=== PATIENT | female | born 1965 | race Caucasian/White ===

== ENCOUNTER 2017-12-02 12:57 | Inpatient (IN) | payer OTHER ==
[2017-12-02] MEDS ORDERED: SODIUM CHLORIDE 0.9% 1,000 ML IV ONE (13:09)
[2017-12-02] MEDS ORDERED: ONDANSETRON 4 MG/2 ML VIAL IVP STA (13:09)
[2017-12-02] MEDS ORDERED: ACETAMINOPHEN 325 MG TABLET PO STA (13:10)
--- NOTE | 2017-12-02 13:12 | ED Physician Documentation ---
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 Note made that she was hospitalized for urosepsis in 2013, pansensitive E. coli. She has had a fever for 5 days with body aches and fatigue. She was seen in the office today. Per her recollection she had a positive urinalysis and was administered IM shot of antibiotics, I presume Rocephin. She was sent home with prescription for Zofran and Cipro but told to come here if she started vomiting which she just did. She has body aches but no urinary symptoms, no URI symptoms. No abdominal pain.) Review of Systems Constitutional: reports: Fever, Chills, Myalgias, Fatigue Ears: denies: Ear pain, Drainage/discharge Nose: denies: Rhinorrhea / runny nose, Congestion Throat: denies: Sore throat Cardiac: denies: Chest pain / pressure, Palpitations Respiratory: denies: Dyspnea, Cough GI: reports: Nausea, Vomiting. denies: Abdominal Pain, Diarrhea PD PAST MEDICAL HISTORY - Past Medical History Past Medical History: Yes GI: Diverticulitis Musculoskeletal: Chronic back pain Other Past Medical History: Chronic dystonia of the neck - Past Surgical History Past Surgical History: Yes - Present Medications Home Medications: Ambulatory Orders Medication Instructions Recorded Confirmed Cyclobenzaprine [Flexeril] 10 mg PO DAILY 05/10/14 12/28/14 Hydrocodone/Acetaminophen 1 each PO Q4HR 05/10/14 12/28/14 [Hydrocodone-APAP 5-300] clonazePAM [Klonopin] 1 mg PO DAILY 05/10/14 12/28/14 - Allergies Allergies/Adverse Reactions: Allergies Allergy/AdvReac Type Severity Reaction Status Date / Time No Known Drug Allergies Allergy Verified 12/02/17 13:05 - Social History Does the pt smoke?: Yes Smoking Status: Current every day smoker Does the pt drink ETOH?: No Does the pt have substance abuse?: No - Family History Family history: reports: Non contributory - Immunizations Immunizations are current?: Yes - POLST Patient has POLST: No PD ED PE NORMAL - Vitals Vital signs reviewed: Yes (Febrile and tachycardic, not hypotensive) - General General: Alert and oriented X 3, No acute distress - HEENT HEENT: PERRL, EOMI - Neck Neck: Supple, no meningeal sign, No bony TTP - Cardiac Cardiac: RRR, No murmur - Respiratory Respiratory: No respiratory distress, Clear bilaterally - Abdomen Abdomen: Normal bowel sounds, Soft, Non tender - Back Back: No CVA TTP, No spinal TTP - Derm Derm: Normal color, Warm and dry - Extremities Extremities: No edema, No calf tenderness / cord - Neuro Neuro: Alert and oriented X 3, Normal speech - Psych Psych: Normal mood, Normal affect Results - Vitals Vitals: Vital Signs - 24 hr 12/02/17 12/02/17 12/02/17 13:02 14:04 14:06 Temperature 39.2 C H 37.9 C H Heart Rate 102 H 82 Respiratory 15 15 Rate Blood Pressure 114/75 95/62 O2 Saturation 96 100 Oxygen O2 Source Room air - Labs Labs: Laboratory Tests 12/02/17 12/02/17 12/02/17 13:20 13:20 13:20 WBC 11.7 H RBC 3.70 L Hgb 11.4 L Hct 33.0 L MCV 89.3 MCH 30.9 MCHC 34.7 RDW 12.5 Plt Count 229 MPV 7.5 L Neut # 9.4 H Lymph # 0.7 L Deuel # 1.5 H Eos # 0.0 Baso # 0.0 Absolute Nucleated RBC 0.00 Nucleated RBC % 0.0 Sodium 124 L Potassium 3.8 Chloride 91 L Carbon Dioxide 23 Anion Gap 10.0 BUN 8 Creatinine 0.9 Estimated GFR (MDRD) 65 L Glucose 119 H Lactic Acid 0.9 Calcium 8.6 Total Bilirubin 0.3 AST 22 ALT 18 Alkaline Phosphatase 88 Total Protein 7.5 Albumin 3.7 Globulin 3.8 Albumin/Globulin Ratio 1.0 Lipase 16 L Urine Color Urine Clarity Urine pH Ur Specific [place] Urine Protein Urine Glucose (UA) Urine Ketones Urine Occult Blood Urine Nitrite Urine Bilirubin Urine Urobilinogen Ur Leukocyte Esterase Urine RBC Urine WBC Ur Squamous Epith Cells Urine Bacteria Ur Microscopic Review Urine Culture Comments 12/02/17 13:52 WBC RBC Hgb Hct MCV MCH MCHC RDW Plt Count MPV Neut # Lymph # Deuel # Eos # Baso # Absolute Nucleated RBC Nucleated RBC % Sodium Potassium Chloride Carbon Dioxide Anion Gap BUN Creatinine Estimated GFR (MDRD) Glucose Lactic Acid Calcium Total Bilirubin AST ALT Alkaline Phosphatase Total Protein Albumin Globulin Albumin/Globulin Ratio Lipase Urine Color LT. YELLOW Urine Clarity CLOUDY Urine pH 6.5 Ur Specific [place] <=1.005 Urine Protein NEGATIVE Urine Glucose (UA) NEGATIVE Urine Ketones NEGATIVE Urine Occult Blood MODERATE H Urine Nitrite POSITIVE H Urine Bilirubin NEGATIVE Urine Urobilinogen 0.2 (NORMAL) Ur Leukocyte Esterase SMALL H Urine RBC 0-5 Urine WBC 6-10 H Ur Squamous Epith Cells RARE Squamous Urine Bacteria None Seen Ur Microscopic Review INDICATED Urine Culture Comments INDICATED PD MEDICAL DECISION MAKING - ED course ED [place] [facility] [place]inalysis today that was positive, 2+ leukocyte esterase, positive nitrates, 3+ blood. She was given ceftriaxone, 1 g IM. In the clinic her temperature was 100.4 Fahrenheit and her pulse was 104 initially but after treatment it was 80. Urinalysis was sent for culture. Here she was quite febrile to 39 2, persistently vomiting and nauseous despite antiemetics. Given her history of urosepsis with similar symptoms and her persistent symptoms it seems to be reasonable to put her in the hospital. She was cultured up and given Zosyn, Tylenol here. Spoke with Dr. Rain for admission at 2:14 PM. Departure - Departure Disposition: [facility] DC/[place] Clinical Impression: Pyelonephritis Urinary tract infection Qualifiers: Urinary tract infection type: acute pyelonephritis Qualified Code(s): N10 - Acute pyelonephritis Condition: Serious
[2017-12-02 13:30] LABS: BASOPHILS % (AUTO) 0.2 %; HGB - HEMOGLOBIN 11.4 g/dL (12.0-16.0); LYMPHOCYTES # (AUTO) 0.7 10^3/uL (1.5-3.5); LYMPHOCYTES % (AUTO) 6.1 %; MEAN CORPUSCULAR HEMOGLOBIN 30.9 pg (27.0-31.0); MEAN CORPUSCULAR HGB CONC 34.7 g/dL (32.0-36.0); MEAN CORPUSCULAR VOLUME 89.3 fL (81.0-99.0); MEAN PLATELET VOLUME 7.5 fL (7.9-10.8); MONOCYTES # (AUTO) 1.5 10^3/uL (0.0-1.0); NEUTROPHILS # (AUTO) 9.4 10^3/uL (1.5-6.6); NEUTROPHILS % (AUTO) 80.7 %; PLT - PLATELET COUNT 229 10^3/uL (130-450); RED CELL DISTRIBUTION WIDTH 12.5 % (12.0-15.0); WHITE BLOOD COUNT 11.7 x10^3/uL (4.8-10.8)
[2017-12-02 13:41] LABS: ALBUMIN 3.7 g/dL (3.2-5.5); BILIRUBIN,TOTAL 0.3 mg/dL (0.2-1.0); CALCIUM 8.6 mg/dL (8.5-10.3); CREATININE 0.9 mg/dL (0.4-1.0); TOTAL PROTEIN 7.5 g/dL (6.7-8.2)
[2017-12-02 14:05] LABS: BILIRUBIN,URINE NEGATIVE (NEGATIVE); GLUCOSE, URINE (UA) NEGATIVE (NEGATIVE); KETONES,URINE (UA) NEGATIVE (NEGATIVE); LEUKOCYTE ESTERASE, URINE SMALL (NEGATIVE); NITRITE,URINE POSITIVE (NEGATIVE); OCCULT BLOOD,URINE MODERATE (NEGATIVE); PH,URINE 6.5 PH (5.0-7.5); PROTEIN,URINE NEGATIVE (NEGATIVE); UROBILINOGEN,URINE 0.2 (NORMAL) E.U./dL (NORMAL)
[2017-12-02 14:12] LABS: CLARITY,URINE CLOUDY (CLEAR); RBC,URINE 0-5 /HPF (0-5); SQUAMOUS EPITHELIAL CELL,UR RARE Squamous (<= Few)
[2017-12-02] MEDS ORDERED: HYDROmorphone 1 MG/ML CARPUJECT IVP STA (14:12)
[2017-12-02] MEDS ORDERED: PIPERACILLIN/TAZOBACTAM 3.375 GM in SODIUM CHLORIDE 0.9% MINIBAG 100 ML IV STA (14:12)
[2017-12-02 14:13] LABS: BACTERIA,URINE None Seen /HPF (None Seen)
[2017-12-02] MEDS ORDERED: SODIUM CHLORIDE FLUSH 0.9% 10 ML SYRINGE IVP PRN ×2 (14:20→14:56)
[2017-12-02] MEDS ORDERED: SODIUM CHLORIDE 0.9% 1,000 ML IV SCH (15:00)
[2017-12-02] MEDS: SODIUM CHLORIDE 0.9% 1,000 ML IV SCH (15:05)
--- NOTE | 2017-12-02 16:04 | HISTORY & PHYSICAL EXAMINATION ---
Chief Complaint - Chief Complaint Chief Complaint: nausea, fever. History of Present Illness - Admitted From Admitted From:: ED - History Obtained From Records Reviewed: yes History obtained from: chart review, patient. Exam Limitations: emotional state - History of Present Illness HPI Comment/Other: Brenda Lawler is an ill appearing 52-year old white female with a past medical history of diverticulitis, stomach ulcers, urosepsis requiring hospitalization in 2014, chronic back pain, dystonia of neck for the past ~30 years and receives Botox injections every 11 weeks, insomnia, and tobacco/narcotic dependence. The patient presented to the ED with a primary complaint of fevers at home of 104 taken orally, chills, body and joint aches, and this morning began to have nausea with vomiting. She recalls having dark, cloudy, and malodorous urine that began about 3 weeks ago, but denies dysuria, hematuria or incontinence. Once in the ED she was found to be febrile with a temp max of 39.2, mildly hypotensive with a B/P of 95/62. Lab results show an elevated WBC count of 11.7, low sodium of 124, and urine suspicious for UTI. Given her severity of symptoms, lab findings, and her history, we will admit her to inpatient for further treatment of urosepsis by giving IV antibiotics, IVFs for treatment of hyponatremia, and treat her symptoms. Her Parish was present both in the ED and at the bedside for much of her admission. History - Past Medical History Cardiovascular: reports: None Respiratory: reports: COPD (suspected d/t prolonged tobacco abuse.) Neuro: reports: Other (insomnia, neck dystonia) Endocrine/Autoimmune: reports: None GI: reports: Ulcers, Chronic constipation, Diverticulitis RN CASE MANAGER: reports: Endometriosis (A history only-no longer as this organ was removed. ), Other (C-sections x2, hysterectomy.) : reports: Other (previous urosepsis in 2014- e. coli.) HEENT: reports: None Psych: reports: Anxiety, Other (insomnia) Musculoskeletal: reports: Chronic back pain, Other (chronic neck dystonia ~30 years, denies surgery) Derm: reports: None MRSA Hx?: No Other Past Medical History: Chronic dystonia of the neck - Past Surgical History General: reports: Colonoscopy Ortho: reports: Other /RN CASE MANAGER: reports: section, Hysterectomy HEENT: reports: Tonsil/Adenoidectomy Other past surgical history: Hysterectomy, x2, foot surgery, tonsillectomy. - Family & Social History Family History: Mother: Alive and Well, Father: , Cancer, Sister: Alive and Well, Brother: Alive and Well Family History Comment/Other: Father from thyroid cancer, mother, brother and sister all alive and well without known chronic diseases. Living arrangement: At home Living Situation: With spouse/s.o. 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 [place] is to Parish of 7 years of whom she lives with. They live [place] of town and have pheasants, 13 chickens, and a cat. The patient has 2 alive and well children a boy and a girl. She denies alcohol, or illicit drug use. She admits to tobacco dependence for much of her adult life. She wishes to be a FULL code. - Substance History Use: Uses substance without health or social issues: Tobacco Abuse: Recurrent use of substance despite neg consequences: NONE Dependence: Experiences withdrawal or developed tolerances: Tobacco Dependence Issues: Sleep Disorder Tobacco Details: Cigarettes (life long smoker, no interest in cessation. Denies dependence during both pregnancies, and states that she has attempted cessation several times in her life, but life stressors cause her to go back to using.) - POLST Patient has POLST: No POLST Status: Full Code Meds/Allgy - Home Medications Home Medications: Ambulatory Orders Medication Instructions Recorded Confirmed Cyclobenzaprine [Flexeril] 10 mg PO QPM 05/10/14 12/02/17 clonazePAM [Klonopin] 1 mg PO QPM 05/10/14 12/02/17 Hydrocodone/Acetaminophen 1 tab PO Q4H PRN 12/02/17 12/02/17 [Hydrocodone-Acetamin 10-325 mg] - Allergies Allergies/Adverse Reactions: Allergies Allergy/AdvReac Type Severity Reaction Status Date / Time No Known Drug Allergies Allergy Verified 12/02/17 13:05 Review of Systems - Constitutional Constitutional: reports: Fatigue, Fever, Chills, Weakness, Poor appetite - Eyes Eyes: denies: Amaurosis, Blurred vision, Vision loss - Ears, Nose & Throat Ears, Nose & Throat: denies: Ear pain, Hearing loss, Hearing aids, Tinnitus - Cardiovascular Cariovascular: reports: Decr. exercise tolerance. denies: Irregular heart rate , Palpitations, Chest pain, Edema - Respiratory Respiratory: denies: Cough, Sputum production - Gastrointestinal Gastrointestinal: reports: Abdominal pain, Change in bowel habits, Nausea, Vomiting, Bile emesis, Poor appetite - Genitourinary Genitourinary: reports: Dysuria, Frequency - Musculoskeletal Musculoskeletal: reports: Joint pain, Joint swelling - Integumentary Integumentary: reports: Dryness. denies: Rash, Pruritis, Lesions - Neurological Neurological: reports: General weakness. denies: Headache, Dizziness - Psychiatric Psychiatric: denies: Depression, Anxiety, Suicidal - Endocrine Endocrine: denies: Polyuria, Polydypsia - Hematologic/Lymphatic Hematologic/Lymphatic: denies: Anemia, Bruising, Petechiae - All Other Systems All Other Systems: reports: Reviewed and negative Exam - Vital Signs Reviewed Vital Signs: Yes Vital Signs: Vital Signs x48h Temp Pulse Pulse Resp BP BP Pulse Ox 12/02/17 15:29 37.2 C 87 18 130/66 98 12/02/17 14:57 37.3 C 80 18 92/56 L 97 12/02/17 14:42 84 17 95/63 97 - Physical Exam General Appearance: positive: Alert, Moderate distress, Anxious Eyes Bilateral: positive: Normal inspection, PERRL ENT: positive: ENT inspection nml, Pharynx nml Neck: positive: Nml inspection, Thyroid nml, No JVD, Trachea midline Respiratory: positive: Chest non-tender, No respiratory distress Cardiovascular: positive: Regular rate & rhythm Peripheral Pulses: positive: 2+ Abdomen: positive: No organomegaly, Tenderness, Guarding, Abnml bowel sounds Back: positive: CVA tenderness (R) (right greater than left.), CVA tenderness (L ) Skin: positive: Color nml, No rash, Warm, Dry Extremities: positive: Non-tender, Full ROM, Nml appearance, No pedal edema Neurologic/Psychiatric: positive: Oriented x3, CN's nml (2-12), Motor nml, Sensation nml, Depressed mood/affect Reflexes: Bicep (R): 3+, Bicep (L): 3+ Conclusion/Plan - Problem List (1) Intractable nausea and vomiting Conclusion/Plan: With the initiation of nausea with uncontrolled vomiting, the patient decided to come to the ED. Her last known emesis was this AM. This was likely a result of dehydration. Plan: Continue to replenish fluids with IVFs and treat symptoms. Qualifiers: Vomiting type: unspecified Qualified Code(s): R11.2 - Nausea with vomiting , unspecified (2) Pyelonephritis Conclusion/Plan: Patient has had similar presentation back in the year 2013, was hospitalized, and was found to have e. coli justice-sensitivities. She denies dysuria, hematuria , but admits to dark, cloudy and malodorous urine that started about 3 weeks ago. One possible risk factor is related to anatomy as she is post- hysterectomy. Patient was noticably emotionally disturbed upon arriving to the nursing floor, so telemetry was discontinued after a short review. This was ordered in light of the patient's febrile state and severity of illness with the potential of her condition worsening. Plan: Treat current illness with IV antibiotics and suggest urology follow up. (3) Fever Conclusion/Plan: Per patient report with her to verify, she had a temp max of 104 orally at home that started about 5 days ago. She has been afebrile since on the nursing floor. I anticipate patient to possibly become febrile later this evening due to acute illness. Plan: Continue to monitor vital signs and patient's clinical status. (4) Tobacco dependence Conclusion/Plan: Patient admits to starting smoking when she was in her 20's. She did not smoke during either , has attempted to quit multiple times, but has never been able to maintain cessation. Patient states that her most recent use has been a half to 1/4 PPD and this depends on her stress level at the time. Plan: Add nicotine patch only PRN as patient denies the need for this and monitor for nicotine withdrawal. (5) Cervical dystonia Conclusion/Plan: The patient has a long history of this condition and has suffered with it for the past ~30 years. She currently receives Botox injections to treat this every 11 weeks, which occurred about 5 weeks ago. Plan: Treat with usual home medications including flexeril, hydrocodone, and clonazepam. Hydromorphone IV PRN has been added for addition agents due to the severity of illness at this time. We will monitor for over sedation. (6) Hyponatremia Conclusion/Plan: At the time of admission, the patient is noted to have a low sodium of only 124. She denies confusion and has no other signs. Plan: Treat with normal saline continuous fluids and re-check labs in AM. - Lab Results Lab results reviewed: Yes Juan Bones: 12/02/17 13:20 12/02/17 13:20 - EKG Results EKG Interpreted Independently: Yes Core Measures - Anticipated LOS I expect patient to be DC'd or transferred within 96 hours.: Yes - DVT/VTE - Prophylaxis VTE/DVT Device ordered at admit?: Yes VTE/DVT Prophylaxis med ordered at admit?: Yes - Stroke - Rehab Assessment Rehab services assessment to be ordered?: No Not Ordered - Medical Reason: Contraindicated - AMI - Statin at Admit Aspirin Prescribed on Admit: Yes
[2017-12-02] MEDS: HYDROmorphone 1 MG/ML CARPUJECT IVP PRN ×2 (16:06→19:16)
[2017-12-02] MEDS: SODIUM CHLORIDE FLUSH 0.9% 10 ML SYRINGE IVP SCH (16:07)
[2017-12-02] MEDS ORDERED: SODIUM CHLORIDE FLUSH 0.9% 10 ML SYRINGE IVP SCH (17:00)
[2017-12-02] MEDS ORDERED: ONDANSETRON 4 MG/2 ML VIAL IVP PRN (17:17)
[2017-12-02] MEDS: ACETAMINOPHEN 325 MG TABLET PO PRN (20:28)
[2017-12-02] MEDS: clonazePAM 0.5 MG TABLET PO SCH (20:29)
[2017-12-02] MEDS: CYCLOBENZAPRINE 10 MG TABLET PO SCH (20:30)
[2017-12-02] MEDS: PIPERACILLIN/TAZOBACTAM 3.375 GM in SODIUM CHLORIDE 0.9% MINIBAG 100 ML IV SCH (20:50)
[2017-12-02] MEDS: cefTRIAXone 1 GM VIAL IVP SCH (22:19)
[2017-12-03] MEDS: HYDROmorphone 1 MG/ML CARPUJECT IVP PRN ×3 (00:37→15:02)
[2017-12-03] MEDS: SODIUM CHLORIDE 0.9% 1,000 ML IV SCH (01:33)
[2017-12-03] MEDS: PIPERACILLIN/TAZOBACTAM 3.375 GM in SODIUM CHLORIDE 0.9% MINIBAG 100 ML IV SCH ×4 (01:34→19:34)
[2017-12-03] MEDS: SODIUM CHLORIDE FLUSH 0.9% 10 ML SYRINGE IVP SCH ×3 (05:56→20:38)
[2017-12-03] MEDS: POLYETHYLENE GLYCOL 3350 17 GM PACKET PO SCH (07:44)
[2017-12-03] MEDS: ACETAMINOPHEN 325 MG TABLET PO PRN (07:44)
--- NOTE | 2017-12-03 08:24 | PROVIDER PROGRESS NOTE ---
Assessment/Plan - Problem List (1) Intractable nausea and vomiting Qualifiers: Vomiting type: unspecified Qualified Code(s): R11.2 - Nausea with vomiting , unspecified Assessment/Plan: With the initiation of nausea with uncontrolled vomiting, the patient decided to come to the ED. Her last known emesis was when she was still in the ED. This was likely a result of dehydration, in addition to her uncontrolled symptoms, and acute illness. The patient is still suffering with very mild, intermittent nausea. Plan: Continue to replenish fluids with IVFs and treat symptoms. (2) Pyelonephritis Assessment/Plan: The patient has had a similar presentation back in the year 2013, was hospitalized, and was found to have e. coli justice-sensitivities. She denies dysuria, hematuria, but admits to dark, cloudy and malodorous urine that started about 3 weeks ago. One possible risk factor is related to anatomy as she is post-hysterectomy. A urine sample was obtained in the ED which indicates a UTI, urine cultures are still pending. Patient was found to be hypotensive, with a low blood pressure charted as 88/47. IV fluid boluses corrected this. Plan: Treat current illness with IV antibiotics and suggest urology follow up. (3) Fever Assessment/Plan: Per patient report with her to verify, she had a temp max of 104 orally at home that started about 5 days ago. Once on the nursing floor, the patient had a temp max of 39.5 (103.1) overnight, and this morning is slightly improved. Plan: Continue to monitor vital signs and patient's clinical status. (4) Tobacco dependence Assessment/Plan: Patient admits to starting smoking when she was in her 20's. She did not smoke during either , has attempted to quit multiple times, but has never been able to maintain cessation. Patient states that her most recent use has been a half to 1/4 PPD and this depends on her stress level at the time. Plan: Add nicotine patch only PRN as patient denies the need for this and monitor for nicotine withdrawal. (5) Cervical dystonia Assessment/Plan: The patient has a long history of this condition and has suffered with it for the past ~30 years. She currently receives Botox injections to treat this every 11 weeks, which occurred about 5 weeks ago. Plan: Treat with usual home medications including flexeril, hydrocodone, and clonazepam. Hydromorphone IV PRN has been added for addition agents due to the severity of illness at this time. We will monitor for over sedation. (6) Hyponatremia Assessment/Plan: At the time of admission, the patient is noted to have a low sodium of only 124 that is improved to 129. She denies confusion and has no other signs. Plan: Treat with normal saline continuous fluids and re-check labs daily. - Current Meds Current Meds: Current Medications Generic Name Dose Route Start Last Admin Trade Name Freq PRN Reason Stop Dose Admin Acetaminophen 650 mg 12/02/17 19:32 12/03/17 07:44 Tylenol PO 650 mg Q4HR PRN Administration Pain or Fever > 38C (100.4F) Ceftriaxone Sodium 1 gm 12/02/17 19:35 12/02/17 22:19 Rocephin IVP 1 gm Q24H ANTONI Administration Clonazepam 1 mg 12/02/17 21:00 12/02/17 20:29 Klonopin PO 1 mg QPM ANTONI Administration Cyclobenzaprine HCl 10 mg 12/02/17 21:00 12/02/17 20:30 Flexeril PO 10 mg QPM ANTONI Administration Hydromorphone HCl 1 mg 12/02/17 15:46 12/03/17 05:16 Dilaudid Inj Carp IVP 1 mg Q2HR PRN Administration PAIN Sodium Chloride 1,000 mls @ 100 mls/hr 12/02/17 15:00 12/03/17 06:41 Normal Saline 0.9% IV 100 mls/hr .Q10H ATNONI Infusion Piperacillin Sod/Tazobactam 100 mls @ 200 mls/hr 12/02/17 20:00 12/03/17 07: 44 Sod 3.375 gm/ Sodium Chloride IV 100 mls/hr Q6H ANTONI Administration Ondansetron HCl 4 mg 12/02/17 17:17 12/03/17 05:16 Zofran Inj IVP 4 mg Q4HR PRN Administration Nausea / Vomiting Polyethylene Glycol 17 gm 12/03/17 09:00 12/03/17 07:44 Miralax PO Not Given DAILY ANTONI Sodium Chloride 10 ml 12/02/17 17:00 12/03/17 07:45 Normal Saline Flush 0.9% IVP Not Given 0100,0900,1700 ANTONI Sterile Water 10 ml 12/02/17 19:34 12/02/17 22:19 Sterile Water IV 10 ml Q24H ANTONI Administration - Lab Result Lab results reviewed: Yes Fish Bone Diagrams: 12/04/17 04:55 12/04/17 04:55 - EKG Results EKG Interpreted Independently: Yes EKG Comparison: Unchanged from prior EKG - Diagnostic Imaging Results Diagnostic Imaging Results: Prelim report reviewed, Final report reviewed - Additional Planning Condition/Complexity: Stable My Orders: My Active Orders 12/02/17 14:56 Sodium Chloride Flush 0.9% [Normal Saline Flush 0.9%] 10 ml IVP PRN PRN 12/02/17 15:00 Sodium Chloride 0.9% [Normal Saline 0.9%] 1,000 ml IV 100 mls/hr 12/02/17 15:46 HYDROmorphone INJ CARP [Dilaudid Inj Carp] 1 mg IVP Q2HR PRN 12/02/17 17:00 Sodium Chloride Flush 0.9% [Normal Saline Flush 0.9%] 10 ml IVP 0100,0900, 1700 12/02/17 17:14 HYDROcodone/ACET 10/325 [[place] 10 mg/325 mg] 1 tab PO Q4H PRN 12/02/17 17:17 Ondansetron Inj [Zofran Inj] 4 mg IVP Q4HR PRN 12/02/17 19:32 Acetaminophen [Tylenol] 650 mg PO Q4HR PRN 12/02/17 19:34 Water For Injection,Sterile [Sterile Water] 10 ml IV Q24H 12/02/17 19:35 cefTRIAXone [Rocephin] 1 gm IVP Q24H 12/02/17 20:00 Piperacillin/Tazobactam [Zosyn] 3.375 gm Sodium Chloride 0.9% Minibag [Normal Saline 0.9% Minibag] 100 ml IV Q6H 12/02/17 21:00 Cyclobenzaprine [Flexeril] 10 mg PO QPM clonazePAM [KlonoPIN] 1 mg PO QPM 12/02/17 Dinner Regular Diet [DIET] 12/03/17 08:21 CBC - COMP BLD CT W/AUTO DIFF [HEME] Routine COMPREHENSIVE METABOLIC PANEL [CHEM] Routine LACTIC ACID, VENOUS [CHEM] Routine MAGNESIUM [CHEM] Routine PHOSPHORUS [CHEM] Routine 12/03/17 08:22 TSH [THYROID STIMULATING HORMONE] [IAI] Routine 12/03/17 08:23 GAMMA GLUTAMYL TRANSPEPTIDASE [CHEM] Routine 12/03/17 09:00 Polyethylene Glycol 3350 [Miralax] 17 gm PO DAILY 12/04/17 05:00 CBC - COMP BLD CT W/AUTO DIFF [HEME] DAILYLAB COMPREHENSIVE METABOLIC PANEL [CHEM] DAILYLAB 12/05/17 05:00 CBC - COMP BLD CT W/AUTO DIFF [HEME] DAILYLAB COMPREHENSIVE METABOLIC PANEL [CHEM] DAILYLAB 12/06/17 05:00 CBC - COMP BLD CT W/AUTO DIFF [HEME] DAILYLAB COMPREHENSIVE METABOLIC PANEL [CHEM] DAILYLAB Plan Discussed with:: Patient, Spouse Time Spent: 31-60 minutes Subjective - Subjective Patient Reports: Abdominal Pain, Nausea, Pain Nursing Reports: No Complaints, Pain Objective Vital Signs: Vital Signs - 24 hr 12/02/17 12/02/17 12/02/17 14:42 14:57 15:29 Temperature 37.3 C 37.2 C Heart Rate 84 Heart Rate [ 80 87 Brachial] Respiratory 17 18 18 Rate Blood Pressure 95/63 Blood Pressure 92/56 L 130/66 [Left Brachial artery] Blood Pressure [Right Brachial artery] O2 Saturation 97 97 98 12/02/17 12/02/17 12/02/17 19:04 19:07 20:59 Temperature 39.3 C H 37.8 C H 39.5 C H Heart Rate Heart Rate [ 108 H 99 Brachial] Respiratory 16 16 Rate Blood Pressure Blood Pressure 123/73 104/58 L [Left Brachial artery] Blood Pressure [Right Brachial artery] O2 Saturation 99 98 12/02/17 12/03/17 23:55 07:30 Temperature 37.1 C 39.0 C H Heart Rate Heart Rate [ 70 91 Brachial] Respiratory 16 16 Rate Blood Pressure Blood Pressure 87/52 L [Left Brachial artery] Blood Pressure 90/47 L [Right Brachial artery] O2 Saturation 97 95 Oxygen O2 Source Room air I&O (Last 24 Hrs): Intake and Output Totals x24h 12/01/17 12/02/17 12/03/17 23:59 23:59 23:59 Intake Total 2100 1966.667 Output Total 300 Balance 2100 1666.667 General: Alert, Oriented x3, Cooperative, Mild distress HEENT: Atraumatic, PERRLA, EOMI, Mucous membr. moist/pink Neck: Supple, No JVD, No thyromegaly Lymphatic: no adenopathy Neuro: Alert, CN 2-12 Grossly Intact, Oriented Times 3 Cardiovascular: Regular rate, Normal S1, No murmurs Respiratory: Chest non-tender, No respiratory distress, Breath sounds nml Abdomen: No masses, Other (gaurded,) Extremities: No clubbing, No cyanosis, No edema, No tenderness/swelling Skin: No rashes, No breakdown, No significant lesion - Results Results: Laboratory Results WBC 11.7 x10^3/uL (4.8-10.8) H 12/02/17 13:20 RBC 3.70 10^6/uL (4.20-5.40) L 12/02/17 13:20 Hgb 11.4 g/dL (12.0-16.0) L 12/02/17 13:20 Hct 33.0 % (37.0-47.0) L 12/02/17 13:20 MCV 89.3 fL (81.0-99.0) 12/02/17 13:20 MCH 30.9 pg (27.0-31.0) 12/02/17 13:20 MCHC 34.7 g/dL (32.0-36.0) 12/02/17 13:20 RDW 12.5 % (12.0-15.0) 12/02/17 13:20 Plt Count 229 10^3/uL (130-450) 12/02/17 13:20 MPV 7.5 fL (7.9-10.8) L 12/02/17 13:20 Neut # 9.4 10^3/uL (1.5-6.6) H 12/02/17 13:20 Lymph # 0.7 10^3/uL (1.5-3.5) L 12/02/17 13:20 [place] # 1.5 10^3/uL (0.0-1.0) H 12/02/17 13:20 Eos # 0.0 10^3/uL (0.0-0.7) 12/02/17 13:20 Baso # 0.0 10^3/uL (0.0-0.1) 12/02/17 13:20 Absolute Nucleated RBC 0.00 x10^3/uL 12/02/17 13:20 Nucleated RBC % 0.0 /100WBC 12/02/17 13:20 Sodium 124 mmol/L (135-145) L 12/02/17 13:20 Potassium 3.8 mmol/L (3.5-5.0) 12/02/17 13:20 Chloride 91 mmol/L (101-111) L 12/02/17 13:20 Carbon Dioxide 23 mmol/L (21-32) 12/02/17 13:20 Anion Gap 10.0 (6-13) 12/02/17 13:20 BUN 8 mg/dL (6-20) 12/02/17 13:20 Creatinine 0.9 mg/dL (0.4-1.0) 12/02/17 13:20 Estimated GFR (MDRD) 65 (>89) L 12/02/17 13:20 Glucose 119 mg/dL (70-100) H 12/02/17 13:20 Lactic Acid 0.9 mmol/L (0.5-2.2) 12/02/17 13:20 Calcium 8.6 mg/dL (8.5-10.3) 12/02/17 13:20 Total Bilirubin 0.3 mg/dL (0.2-1.0) 12/02/17 13:20 AST 22 IU/L (10-42) 12/02/17 13:20 ALT 18 IU/L (10-60) 12/02/17 13:20 Alkaline Phosphatase 88 IU/L (42-121) 12/02/17 13:20 Total Protein 7.5 g/dL (6.7-8.2) 12/02/17 13:20 Albumin 3.7 g/dL (3.2-5.5) 12/02/17 13:20 Globulin 3.8 g/dL (2.1-4.2) 12/02/17 13:20 Albumin/Globulin Ratio 1.0 (1.0-2.2) 12/02/17 13:20 Lipase 16 U/L (22-51) L 12/02/17 13:20 Urine Color LT. YELLOW 12/02/17 13:52 Urine Clarity CLOUDY (CLEAR) 12/02/17 13:52 Urine pH 6.5 PH (5.0-7.5) 12/02/17 13:52 Ur Specific [place] <=1.005 (1.002-1.030) 12/02/17 13:52 Urine Protein NEGATIVE mg/dL (NEGATIVE) 12/02/17 13:52 Urine Glucose (UA) NEGATIVE mg/dL (NEGATIVE) 12/02/17 13:52 Urine Ketones NEGATIVE mg/dL (NEGATIVE) 12/02/17 13:52 Urine Occult Blood MODERATE (NEGATIVE) H 12/02/17 13:52 Urine Nitrite POSITIVE (NEGATIVE) H 12/02/17 13:52 Urine Bilirubin NEGATIVE (NEGATIVE) 12/02/17 13:52 Urine Urobilinogen 0.2 (NORMAL) E.U./dL (NORMAL) 12/02/17 13:52 Ur Leukocyte Esterase SMALL (NEGATIVE) H 12/02/17 13:52 Urine RBC 0-5 /HPF (0-5) 12/02/17 13:52 Urine WBC 6-10 /HPF (0-5) H 12/02/17 13:52 Ur Squamous Epith Cells RARE Squamous (<= Few) 12/02/17 13:52 Urine Bacteria None Seen /HPF (None Seen) 12/02/17 13:52 Ur Microscopic Review INDICATED 12/02/17 13:52 Urine Culture Comments INDICATED 12/02/17 13:52 Ethyl Alcohol < 5.0 mg/dL 12/02/17 13:20 - Procedures Procedures: Procedures VENOUS CATHETERIZATION NEC (05/10/14)
[2017-12-03 08:53] LABS: BASOPHILS % (AUTO) 0.3 %; EOSINOPHILS % (AUTO) 0.1 %; HGB - HEMOGLOBIN 8.9 g/dL (12.0-16.0); LYMPHOCYTES # (AUTO) 0.9 10^3/uL (1.5-3.5); LYMPHOCYTES % (AUTO) 13.4 %; MEAN CORPUSCULAR HEMOGLOBIN 31.3 pg (27.0-31.0); MEAN CORPUSCULAR HGB CONC 35.1 g/dL (32.0-36.0); MEAN PLATELET VOLUME 7.5 fL (7.9-10.8); MONOCYTES # (AUTO) 1.1 10^3/uL (0.0-1.0); MONOCYTES % (AUTO) 17.6 %; NEUTROPHILS # (AUTO) 4.5 10^3/uL (1.5-6.6); NEUTROPHILS % (AUTO) 68.6 %; PLT - PLATELET COUNT 173 10^3/uL (130-450); RED BLOOD COUNT 2.86 10^6/uL (4.20-5.40); RED CELL DISTRIBUTION WIDTH 12.7 % (12.0-15.0); WHITE BLOOD COUNT 6.5 x10^3/uL (4.8-10.8)
[2017-12-03] MEDS ORDERED: POLYETHYLENE GLYCOL 3350 17 GM PACKET PO SCH (09:00)
[2017-12-03 09:06] LABS: ALBUMIN 2.8 g/dL (3.2-5.5); BILIRUBIN,TOTAL 0.3 mg/dL (0.2-1.0); CALCIUM 7.9 mg/dL (8.5-10.3); CREATININE 0.8 mg/dL (0.4-1.0); MAGNESIUM 1.9 mg/dL (1.7-2.8); PHOSPHORUS 3.1 mg/dL (2.5-4.6); TOTAL PROTEIN 5.6 g/dL (6.7-8.2)
[2017-12-03] MEDS: HYDROcod/ACETAM 10 MG/325 MG TABLET PO PRN ×3 (09:09→18:59)
[2017-12-03] MEDS ORDERED: diphenhydrAMINE INJ 50 MG/ML VIAL IVP PRN (13:13)
[2017-12-03] MEDS: NS W/20 MEQ KCL 1,000 ML IV SCH ×2 (13:14→23:14)
[2017-12-03] MEDS ORDERED: IOPAMIDOL-300 50 ML VIAL ONE (13:18)
[2017-12-03] MEDS ORDERED: IOPAMIDOL-300 100 ML VIAL ONE (13:18)
[2017-12-03] MEDS ORDERED: VANCOMYCIN PER PHARMACY 100 GM in SODIUM CHLORIDE 0.9% 250 ML IV SCH (14:00)
[2017-12-03] MEDS ORDERED: IOPAMIDOL-300 100 ML VIAL IVP ONE (14:46)
[2017-12-03] MEDS ORDERED: IOPAMIDOL-300 50 ML VIAL PO ONE (14:46)
[2017-12-03] MEDS: VANCOMYCIN INJ 1 GM, VANCOMYCIN INJ 250 MG in SODIUM CHLORIDE 0.9% 250 ML IV SCH (14:48)
--- NOTE | 2017-12-03 15:02 | CT Preliminary Report ---
Exam: CT ABDOMEN/PELVIS W/ IMPRESSION: 1. Bilateral perinephric edema with heterogeneous renal enhancement, most suggestive of bilateral george lonephritis or acute tubular necrosis without hydronephrosis. 2. No abscess or bowel obstruction. 3. Increased colonic stool volume. [facility] SITE ID: [id number]
--- NOTE | 2017-12-03 15:02 | CT Report ---
EXAM: CT ABDOMEN AND PELVIS EXAM DATE: 12/03/2017 02:45 PM. CLINICAL HISTORY: Flank pain, urosepsis, constipation,abd pain. COMPARISONS: 05/10/2014. TECHNIQUE: Routine helical CT imaging was performed through the abdomen and pelvis. IV contrast: 50ML ISOVUE 300. Enteric contrast: No. Reconstructions: Coronal and sagittal. In accordance with CT protocol optimization, one or more of the following dose reduction techniques w ere utilized for this exam: automated exposure control, adjustment of mA and/or KV based on patient s ize, or use of iterative reconstructive technique. FINDINGS: Lung Bases: There is a calcified granuloma in the left lower lobe. There is mild dependent atelectasi s. Liver: There are several small low-density lesions located within the liver. The largest lesion is a cyst. The tiniest lesions are too small to definitively characterize. Gallbladder/Bile Ducts: Unremarkable. Spleen: Normal. Pancreas: Normal. Adrenal Glands: Normal. Kidneys: There is bilateral perinephric edema. There is heterogeneous cortical enhancement of both ki dneys. No hydronephrosis or retroperitoneal fluid collection. No ureter stones. Peritoneal Cavity/Bowel: There is stool present through out the colon. No dilated bowel loops. No pne umatosis or free air. No free fluid or abscess. Small bowel appears unremarkable. The appendix is wel l visualized and normal. Pelvic Organs: Urinary bladder is unremarkable. Vasculature: No aneurysms or other significant abnormality. Bones: No significant abnormality. Other: None. IMPRESSION: 1. Bilateral perinephric edema with heterogeneous renal enhancement, most suggestive of bilateral george lonephritis or acute tubular necrosis without hydronephrosis. 2. No abscess or bowel obstruction. 3. Increased colonic stool volume. [facility] Referring Provider Line: [phone] SITE ID: [id number]
[2017-12-03] MEDS: clonazePAM 0.5 MG TABLET PO SCH (20:38)
[2017-12-03] MEDS: CYCLOBENZAPRINE 10 MG TABLET PO SCH (20:38)
[2017-12-03] MEDS: cefTRIAXone 1 GM VIAL IVP SCH (20:38)
[2017-12-04] MEDS: PIPERACILLIN/TAZOBACTAM 3.375 GM in SODIUM CHLORIDE 0.9% MINIBAG 100 ML IV SCH ×2 (01:00→06:36)
[2017-12-04] MEDS: VANCOMYCIN INJ 1 GM, VANCOMYCIN INJ 250 MG in SODIUM CHLORIDE 0.9% 250 ML IV SCH (01:47)
[2017-12-04] MEDS ORDERED: DOCUSATE SODIUM 250 MG CAPSULE PO PRN (03:19)
[2017-12-04] MEDS ORDERED: SENNA 8.6 MG TABLET PO PRN (03:24)
[2017-12-04] MEDS: ACETAMINOPHEN 325 MG TABLET PO PRN (03:35)
[2017-12-04] MEDS: HYDROcod/ACETAM 10 MG/325 MG TABLET PO PRN ×3 (04:51→13:00)
[2017-12-04 05:36] LABS: BASOPHILS % (AUTO) 0.4 %; EOSINOPHILS % (AUTO) 0.7 %; HGB - HEMOGLOBIN 8.8 g/dL (12.0-16.0); LYMPHOCYTES # (AUTO) 0.8 10^3/uL (1.5-3.5); LYMPHOCYTES % (AUTO) 14.8 %; MEAN CORPUSCULAR HEMOGLOBIN 30.3 pg (27.0-31.0); MEAN CORPUSCULAR HGB CONC 33.2 g/dL (32.0-36.0); MEAN CORPUSCULAR VOLUME 91.4 fL (81.0-99.0); MEAN PLATELET VOLUME 7.6 fL (7.9-10.8); MONOCYTES # (AUTO) 0.7 10^3/uL (0.0-1.0); MONOCYTES % (AUTO) 12.9 %; NEUTROPHILS # (AUTO) 3.9 10^3/uL (1.5-6.6); NEUTROPHILS % (AUTO) 71.2 %; PLT - PLATELET COUNT 210 10^3/uL (130-450); RED CELL DISTRIBUTION WIDTH 12.9 % (12.0-15.0); WHITE BLOOD COUNT 5.4 x10^3/uL (4.8-10.8)
[2017-12-04 05:46] LABS: ALBUMIN 2.6 g/dL (3.2-5.5); ALBUMIN/GLOBULIN RATIO 0.8 (1.0-2.2); BILIRUBIN,TOTAL 0.5 mg/dL (0.2-1.0); CALCIUM 7.9 mg/dL (8.5-10.3); CREATININE 0.8 mg/dL (0.4-1.0); TOTAL PROTEIN 5.7 g/dL (6.7-8.2)
[2017-12-04] MEDS: SODIUM CHLORIDE FLUSH 0.9% 10 ML SYRINGE IVP SCH ×2 (06:41→10:24)
[2017-12-04 07:38] VITALS: BP 97/72
[2017-12-04] MEDS: NS W/20 MEQ KCL 1,000 ML IV SCH ×2 (08:33→10:49)
[2017-12-04] MEDS ORDERED: MAGNESIUM OXIDE 400 MG TABLET PO SCH (09:00)
[2017-12-04] MEDS ORDERED: SENNA 8.6 MG TABLET PO SCH (09:00)
[2017-12-04] MEDS: POLYETHYLENE GLYCOL 3350 17 GM PACKET PO SCH (10:24)
[2017-12-04] MEDS ORDERED: VANCOMYCIN INJ 1 GM, VANCOMYCIN INJ 250 MG in SODIUM CHLORIDE 0.9% 250 ML IV SCH (11:30)
--- NOTE | 2017-12-04 11:53 | Discharge Plan ---
Discharge Plan Disposition: Home, Self Care Condition: Good Prescriptions: Fluconazole [Diflucan] 150 mg PO DAILY #2 tablet Levofloxacin [Levaquin] 750 mg PO DAILY 14 Days #14 tablet Saccharomyces Boulardii [Florastor] 250 mg PO BID 20 Days #40 capsule Senna [Senokot] 8.6 - 17.2 mg PO DAILY PRN #30 tablet PRN Reason: Constipation Diet: Regular Activity Restrictions: Activity as Tolerated Shower Restrictions: No Driving Restrictions: No Weight Bearing: Full Weight Additional Instructions or Follow Up instructions: You were admitted for nausea, vomiting, flu like symptoms and found to have a kidney infection. You were given IV antibiotics and IV fluids. A CT scan was completed and as expected the only abnormality was with your kidney as they showed signs of infection. You should continue the antibiotics at home for another 14 days because it takes longer for the kidneys to be fully penetrated, which calls for a longer treatment as compared to other infections. Please take a probiotic (or yogurt) because the antibiotic is very potent and may cause diarrhea. I have given you 2 doses of an anti-yeast medications in case you find that you are getting a vaginal yeast infection, normally things stay ok as long as you take the probiotic. Please get extra rest and drink extra water. If you start smoking, your healing may be impaired, so please make your best efforts. Please see your PCP within a week of this hospitalization. No Smoking: If you smoke, Please STOP! Call for help. Follow-up with: Jodi Churchill ARNP [Primary Care Provider] -
--- NOTE | 2017-12-04 12:51 | DISCHARGE SUMMARY ---
Discharge Summary Admit Date: 12/02/17 Discharge Date: 12/04/17 Discharging Provider: YOEL Shoemaker Primary Care Provider: Ariana Churchill Code Status: Attempt Resuscitation Condition at Discharge: Good Discharge Disposition: 01 Home, Self Care - DIAGNOSES Admission Diagnoses: Pyelonephritis (N12) Intractable nausea and vomiting (R11.2) Fever (R50.9) Tobacco dependence (F17.200) Cervical dystonia (G24.3) Hyponatremia (E87.1) Discharge Diagnoses with Status of Each Condition: Pyelonephritis (N12)- new on this admission, care to continue at home with oral antibiotics. Intractable nausea and vomiting (R11.2)- resolved. Fever (R50.9)- resolved. Tobacco dependence (F17.200)- chronic, encouraged cessation, but the patient became agitated as discharge became near and left the building against medical advise to smoke. Patient encouraged cessation as this will aid in healing. Cervical dystonia (G24.3)- chronic, stable. Hyponatremia (E87.1)- resolved. - HPI History of Present Illness: Brenda Lawler is an ill appearing 52-year old white female with a past medical history of diverticulitis, stomach ulcers, urosepsis requiring hospitalization in 2013, chronic back pain, dystonia of neck for the past ~30 years and receives Botox injections every 11 weeks, insomnia, and tobacco/narcotic dependence. The patient presented to the ED with a primary complaint of fevers at home of 104 taken orally, chills, body and joint aches, and this morning began to have nausea with vomiting. She recalls having dark, cloudy, and malodorous urine that began about 3 weeks ago, but denies dysuria, hematuria or incontinence. Once in the ED she was found to be febrile with a temp max of 39.2, mildly hypotensive with a B/P of 95/62. Lab results show an elevated WBC count of 11.7, low sodium of 124, and urine suspicious for UTI. Given her severity of symptoms, lab findings, and her history, we will admit her to inpatient for further treatment of urosepsis by giving IV antibiotics, IVFs for treatment of hyponatremia, and treat her symptoms. Her Parish was present both in the ED and at the bedside for much of her admission. - HOSPITAL COURSE Hospital Course: The following diagnoses were prevalent during this hospital stay: (1) Intractable nausea and vomiting With the initiation of nausea with uncontrolled vomiting, the patient decided to come to the ED. Her last known emesis was when she was still in the ED. This was likely a result of dehydration, in addition to her uncontrolled symptoms, and acute illness. This slowly resolved and the patient had no further complaints at the time of discharge. This is considered resolved. (2) Pyelonephritis The patient has had a similar presentation back in the year 2013, was hospitalized, and was found to have e. coli justice-sensitivities. She denied dysuria, hematuria, but admited to dark, cloudy and malodorous urine that started about 3 weeks ago. She also complained of bilateral flank pain and constipation and was treated with IV pain medication. One possible risk factor of frequent UTI could be related to anatomy as she is post-hysterectomy. A urine sample was obtained in the ED which indicates a UTI, urine cultures were inconclusive. Patient was found to be hypotensive early in her stay, with a low blood pressure charted as 88/47. IV fluid boluses corrected this. The patient was given IV Zosyn and Vanco, that was changed to Levofloxacin and a probiotic to be taken at home. (3) Fever Per patient report with her to verify, she had a temp max of 104 orally at home that started about 5 days ago. Once on the nursing floor, the patient had a temp max of 39.5 (103.1) that was noted only on her first night of stay and gradually improved. This is considered resolved. (4) Tobacco dependence Patient admits to starting smoking when she was in her 20's. She did not smoke during either , has attempted to quit multiple times, but has never been able to maintain cessation. Patient states that her most recent use has been a half to 1/4 PPD and this depends on her stress level at the time. She was prescribed a Nicotine patch PRN, but refused. She may have left earlier than the time of discharge as she stated that "I just need to get out of here". She presumably used tobacco outside and then came back for her discharge instructions. In [address] noted a lung lesion. (5) Cervical dystonia The patient has a long history of this condition and has suffered with it for the past ~30 years. She currently receives Botox injections to treat this every 11 weeks, which occurred about 5 weeks ago. The patient was given her usual home medications including flexeril, hydrocodone, and clonazepam while hospitalized. In addition, she was treated with Hydromorphone IV PRN, but the patient felt as if it was not helping and was soon discontinued. No additional narcotics were prescribed as the patient said she had a pain contract and did not want to abuse this. (6) Hyponatremia At the time of admission, the patient is noted to have a low sodium of only 124 that improved to 133 at the time of discharge. She denies confusion and has no other signs. This is considered resolved and can be contributed acute illness. Disposition: The patient was in stable condition at the time of discharge. She was ambulatory, not dependent on oxygen and her pain was managed. She was instructed to continue her antibiotics and see her PCP, who can refer her to urology as this is her second complication that has required hospitalization. - ALLERGIES Allergies/Adverse Reactions: Allergies Allergy/AdvReac Type Severity Reaction Status Date / Time No Known Drug Allergies Allergy Verified 12/02/17 13:05 - MEDICATIONS Home Medications: Ambulatory Orders Medication Instructions Recorded Confirmed Cyclobenzaprine [Flexeril] 10 mg PO QPM 05/10/14 12/02/17 clonazePAM [Klonopin] 1 mg PO QPM 05/10/14 12/02/17 Hydrocodone/Acetaminophen 1 tab PO Q4H PRN 12/02/17 12/02/17 [Hydrocodone-Acetamin 10-325 mg] Fluconazole [Diflucan] 150 mg PO DAILY #2 tablet 12/04/17 Levofloxacin [Levaquin] 750 mg PO DAILY 14 Days #14 tablet 12/04/17 Saccharomyces Boulardii [Florastor] 250 mg PO BID 20 Days #40 capsule 12/04/17 Senna [Senokot] 8.6 - 17.2 mg PO DAILY PRN #30 12/04/17 tablet - PHYSICAL EXAM AT DISCHARGE General Appearance: positive: Alert, Moderate distress, Anxious Eyes Bilateral: positive: Normal inspection, PERRL ENT: positive: ENT inspection nml, Pharynx nml, No signs of dehydration Neck: positive: Nml inspection, Thyroid nml, No JVD, Trachea midline Respiratory: positive: Chest non-tender, No respiratory distress, Breath sounds nml Cardiovascular: positive: Regular rate & rhythm, No murmur, No gallop Peripheral Pulses: positive: 2+ Abdomen: positive: Non-tender, No organomegaly, Nml bowel sounds, Guarding ( mildly distended d/t slow moving bowels that later were noted to be in "high gear" with diarrhea. ) Back: positive: Nml inspection Skin: positive: Color nml, No rash, Warm, Dry Extremities: positive: Non-tender, Full ROM, Nml appearance, No pedal edema Neurologic/Psychiatric: positive: Oriented x3, CN's nml (2-12), Motor nml, Sensation nml, Depressed mood/affect (chronic, worsened as upcoming discharge was coming up.) Reflexes: Bicep (R): 4+, Bicep (L): 4+, Ankle (R): 4+, Ankle (L): 4+ - LABS Result Diagrams: 12/04/17 04:55 12/04/17 04:55 - DIAGNOSTIC IMAGING Diagnostic Imaging Results: Prelim report reviewed, Final report reviewed Diagnostic Imaging Results Comments: EXAM: CT ABDOMEN AND PELVIS EXAM DATE: 12/03/2017 02:45 PM. CLINICAL HISTORY: Flank pain, urosepsis, constipation,abd pain. COMPARISONS: 05/10/2014. TECHNIQUE: Routine helical CT imaging was performed through the abdomen and pelvis. IV contrast: 50ML ISOVUE 300. Enteric contrast: No. Reconstructions: Coronal and sagittal. FINDINGS: Lung Bases: There is a calcified granuloma in the left lower lobe. There is mild dependent atelectasis. Liver: There are several small low-density lesions located within the liver. The largest lesion is a cyst. The tiniest lesions are too small to definitively characterize. Gallbladder/Bile Ducts: Unremarkable. Spleen: Normal. Pancreas: Normal. Adrenal Glands: Normal. Kidneys: There is bilateral perinephric edema. There is heterogeneous cortical enhancement of both kidneys. No hydronephrosis or retroperitoneal fluid collection. No ureter stones. Peritoneal Cavity/Bowel: There is stool present through out the colon. No dilated bowel loops. No pneumatosis or free air. No free fluid or abscess. Small bowel appears unremarkable. The appendix is well visualized and normal. Pelvic Organs: Urinary bladder is unremarkable. Vasculature: No aneurysms or other significant abnormality. Bones: No significant abnormality. Other: None. IMPRESSION: 1. Bilateral perinephric edema with heterogeneous renal enhancement, most suggestive of bilateral pyelonephritis or acute tubular necrosis without hydronephrosis. 2. No abscess or bowel obstruction. 3. Increased colonic stool volume. - FOLLOW UP Follow Up: Disposition: 01 Home, Self Care Condition: Good Prescriptions: Fluconazole [Diflucan] 150 mg PO DAILY #2 tablet Levofloxacin [Levaquin] 750 mg PO DAILY 14 Days #14 tablet Saccharomyces Boulardii [Florastor] 250 mg PO BID 20 Days #40 capsule Senna [Senokot] 8.6 - 17.2 mg PO DAILY PRN #30 tablet PRN Reason: Constipation Diet: Regular Activity Restrictions: Activity as Tolerated Shower Restrictions: No Driving Restrictions: No Weight Bearing: Full Weight Additional Instructions or Follow Up instructions: You were admitted for nausea, vomiting, flu like symptoms and found to have a kidney infection. You were given IV antibiotics and IV fluids. A CT scan was completed and as expected the only abnormality was with your kidney as they showed signs of infection. You should continue the antibiotics at home for another 14 days because it takes longer for the kidneys to be fully penetrated, which calls for a longer treatment as compared to other infections. Please take a probiotic (or yogurt) because the antibiotic is very potent and may cause diarrhea. I have given you 2 doses of an anti-yeast medications in case you find that you are getting a vaginal yeast infection, normally things stay ok as long as you take the probiotic. Please get extra rest and drink extra water. If you start smoking, your healing may be impaired, so please make your best efforts. Please see your PCP within a week of this hospitalization. - TIME SPENT Time Spent in Discharge (Minutes): 60
[2017-12-04] MEDS ORDERED: LORazepam 0.5 MG TABLET PO SCH (13:01)
== END 2017-12-04 13:25 | disposition home or self-care (01) | DRG 690 ==
LOC: ED 12:57 → MS2 14:20 → ED 14:51 → MS2 15:02
PROVIDERS: ADMIT Nurse Practitioner; ATTEND Nurse Practitioner
DX: N10 Acute pyelonephritis (principal); E87.1 Hypo-osmolality and hyponatremia; F11.20 Opioid dependence, uncomplicated; I95.9 Hypotension, unspecified; E86.0 Dehydration; G24.9 Dystonia, unspecified; G89.29 Other chronic pain; G47.00 Insomnia, unspecified; K59.09 Other constipation; F41.9 Anxiety disorder, unspecified; F17.218 Nicotine dependence, cigarettes, with other nicotine-induced disorders; Z87.11 Personal history of peptic ulcer disease; Z90.710 Acquired absence of both cervix and uterus
CPT/HCPCS: 36415; 74177; 80053; 80320; 81001; 81003; 82977; 83605; 83690; 83735; 84100; 84443; 85025; 87040; 87086; 96374; 96375; 99283; 99284

== ENCOUNTER 2018-05-09 15:48 | Outpatient (CLI) | payer OTHER | END 2018-05-09 15:49 | disposition home or self-care (01) | LOC: LAB.R 15:48 | PROVIDERS: ATTEND Obstetrics & Gynecology | DX: B37.3 Candidiasis of vulva and vagina (principal) | CPT/HCPCS: 87480; 87510; 87660 ==

== ENCOUNTER 2018-05-25 08:00 | Outpatient (CLI) | payer OTHER | END 2018-05-25 23:59 | LOC: LAB.R 08:00 | PROVIDERS: ATTEND Obstetrics & Gynecology | DX: N77.1 Vaginitis, vulvitis and vulvovaginitis in diseases classified elsewhere (principal) | CPT/HCPCS: 87070; 87205 ==

== ENCOUNTER 2021-11-16 10:20 | Outpatient (CLI) | payer OTHER ==
--- NOTE | 2021-11-16 11:37 | XRAY Report ---
PROCEDURE: Foot 3 View LT INDICATIONS: L FOOT PAIN TECHNIQUE: 3 views of the foot were acquired. COMPARISON: None. FINDINGS: Bones: No acute fractures or dislocations. No suspicious bony lesions. Irregular appearance of the lateral hallux sesamoid may be related to prior trauma or degenerative changes without definite acute fracture identified. Soft tissues: No suspicious soft tissue calcifications. IMPRESSION: Irregularity of the lateral hallux sesamoid may be related to prior trauma, degenerative changes, or congenital variation. Recommend correlation with clinical signs and symptoms. MRI could be obtained f or further evaluation if indicated clinically. Reviewed by: Huang Jones MD on 11/16/2021 11:36 AM PDT Approved by: Huang Jones MD on 11/16/2021 11:36 AM PDT Station ID: [id number]
== END 2021-11-16 10:21 | disposition home or self-care (01) ==
LOC: DI 10:20
PROVIDERS: ATTEND Podiatrist
DX: M79.672 Pain in left foot (principal)